=== PATIENT | male | born 1960 | race Caucasian/White ===

== ENCOUNTER 2020-07-14 14:25 | Outpatient (CLI) | payer MEDICARE, OTHER, SELFPAY ==
--- NOTE | 2020-07-14 14:41 | USCV_ITS ---
Yeimy Jacobo Age: 60 Gender: M : 1960 Exam Date: 07/14/2020 14:40 Ordering Phys: Manuel Ely MD Technologist: Kala Riley [place] [facility] [place]: [place] LEG SWELLING HISTORY: Lower extremity swelling. PROCEDURES: Venous duplex imaging was performed in only the right lower extremity. The following venous structures were evaluated: common femoral vein, profunda vein, proximal portion of the greater saphenous vein, superficial femoral vein, and the popliteal vein. In addition, the posterior tibial and peroneal trunk were evaluated. FINDINGS: Normal 2-D Doppler and augmentation and compressibility throughout the lower extremity venous structures. Additional imaging through the proximal calf veins also reveals no thrombus. Limited evaluation of the greater saphenous vein is patent with no thrombus. There appears to be a hematoma noted in the area of patient concern of right lower leg measuring 3.94x1.68x2.95cm. CONCLUSIONS No evidence of right lower extremity DVT. Hematoma right lower leg area of concern measuring 3.9 x1.6 x2.9cm Alec Fox MD (Electronically Signed) Final Date: 14 July 2020 16:58 S
== END 2020-07-14 14:26 | disposition home or self-care (01) ==
PROVIDERS: Visit Provider Family Medicine
DX: M79.604 Pain in right leg (principal); M79.89 Other specified soft tissue disorders; S80.11XA Contusion of right lower leg, initial encounter; X58.XXXA Exposure to other specified factors, initial encounter
CPT/HCPCS: 93971

== ENCOUNTER 2023-08-14 08:57 | Outpatient (CLI) | payer MEDICARE, OTHER, SELFPAY ==
--- NOTE | 2023-08-14 09:06 | US_ITS ---
WS: [id number] RIGHT UPPER QUADRANT ULTRASOUND HISTORY: ELEVATED LFT'S COMPARISON: None available. Liver: 16.8 cm in length. Normal size liver and echogenicity. No bile duct dilatation or mass. Portal Vein: Normal hepatopetal flow with monophasic waveform. Gallbladder: Normally distended. There is a small single gallstone. No acute cholecystitis. CBD: 0.3 cm Pancreas: Normal size and echogenicity. Right kidney: 10.1 cm in length. Normal size and echogenicity. No hydronephrosis or mass. Aorta and IVC: Unremarkable abdominal aorta and IVC. No ascites. IMPRESSION: 1. Cholelithiasis without acute cholecystitis. 2. No bile duct dilatation.
== END 2023-08-14 08:58 | disposition home or self-care (01) ==
LOC: RAD 08:59
PROVIDERS: PCP Nurse Practitioner Family; Visit Provider Family Medicine
DX: K80.20 Calculus of gallbladder without cholecystitis without obstruction (principal); R74.8 Abnormal levels of other serum enzymes
CPT/HCPCS: 76705

== ENCOUNTER 2025-09-04 15:05 | Emergency (ER) | payer MEDICARE, OTHER, SELFPAY ==
[2025-09-04 15:07] VITALS: BP 135/49; PULSE 107; RESP 18; TEMP 36.7; O2SAT 98
--- OUTSIDE RECORDS SUMMARY | 2025-09-04 15:10 | XMS_ITS | Clinical Summary ---
Author Organization [facility] Address [address] [place] [address] Care Team Providers Care Oil Field Technician Name Role Phone Unavailable Primary Care Provider Unavailabl e Allergies No known active allergies Medications METOPROLOL TARTRATE PO Take by mouth. Active pravastatin (PRAVACHOL) 20 mg Oral tablet Take 20 mg by mouth Daily LATE. Active oxiconazole nitrate (OXISTAT) 1 % Topical Lotn Apply to affected area 2 times daily. 60 Gram 10 03/09/2010 Active selenium sulfide (SELSUN) 2.5 % Topical Susp Apply to affected area daily. 6 oz 1 03/09/2010 Active terbinafine (LAMISIL) 250 mg Oral tabletIndicatio ns:Tinea corporis Take 1 Tab by mouth daily. 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
--- OUTSIDE RECORDS SUMMARY | 2025-09-04 15:10 | XMS_ITS | Clinical Summary ---
Author Organization [facility] Address [address] [facility] Attn: Epic Prelude ADT [place] [address] Care Team Providers Care Chief Meteorologist Name Role Phone Unavailable Primary Care Provider Unavailabl e Allergies No known active allergies Encounters Date Type Department Care Team Description 06/14/2025 Refill [facility] [place] [address] [address] [place] [address] Shyanne English MD from Last 3 Months Social History Tobacco Use Types Packs/Day Years Used Date Smoking Tobacco: Never Smokeless Tobacco: Never Alcohol Use Standard Drinks/Week Comments Yes 0 (1 standard drink = 0.6 oz pur e alcohol) Sex and Gender Information Value Date Recorded Sex Assigned at Not on file 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
--- OUTSIDE RECORDS SUMMARY | 2025-09-04 15:10 | XMS_ITS | Encounter Summary ---
Author Organization [facility] Address [address] [place] [address] Care Team Providers Care Import Customs Clearing Agent Name Role Phone Unavailable Primary Care Provider Unavailabl e Encounter Details Date Type Department Care Team (Late st Contact Info) Description 12/31/2006 Outpatient Historical [facility] D[facility]at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
--- OUTSIDE RECORDS SUMMARY | 2025-09-04 15:10 | XMS_ITS | Data Portability ---
Author Organization [facility] Lenea Christensen, [facility] Address [address] [address] Assessment No assessment recorded. Plan of Treatment Reminders Order Date Submit Date Provider Last Modified By Organization Details Last Modified Time Details Appointments RECHECK 2025 08:20A M Fuentes Bassett MD Not available Not available Not available Lab None recorded . Referral None recorded . Procedures None recorded . Surgeries None recorded . Imaging None recorded . Medication Orders None recorded . Patient TargetsNo targets recorded. Patient InstructionsNo instructions recorded. Reason for Referral None Reported. Problems Name Problem SNOMED Code Status Onset Date Resolution Date Notes Provider Name and Address Organization Details Recorded Time History of orthopedi c surgery 83420433456 101 Active 2005 bilateral knee surgery; 6 8:38AM by Khushboo Crowell LPN, Office Visit; Promoted; acuity set as *; Not Available [facility] 3 03:10:43 Heart valve disorder 623962 Active 2024 Fuentes Bassett MD [address] [place] [address], [phone] , [facility] 14:01:45 Bilateral osteoarth ritis of knees 32451011241 9107 Active 2024 Fuentes Bassett MD [address] [place] [address], [phone] , [facility] 14:02:42 Problem Notes None recorded. Procedures Surgical History Date Name Laterality Status Provider Name and Address Organization Details Recorded Time heart valve replacement completed PALOMOHÉCTOR HERNANDEZ [facility], Leena 04/27/2025 13:35:17 Pacemaker completed PALOMOAlexander CASTRO [facility], LHenryLMarkel 04/27/2025 13:35:26 [facility], Leena 04/27/2025 13:36:00 arthroscopy of ankle completed [facility], DeisyLHenryCHenry 04/27/2025 13:36:19 Colonoscopy completed [facility], ShinCHenry 04/27/2025 13:37:19 Imaging Results None recorded. Procedure Notes None recorded. Medical Equipment None Reported. Allergies Allergen ID Allergen Name Allergen Category Reaction Reaction Severity Criticality Documentation Date Start Date Code Code System Note Provider Name and Address Organization Details Recorded Time 57416 heparin medicatio n other severe Not available 04/27/20252012 5224 RxNorm [facility] L[facility] 5 13:43:08 61286 DermaSilk Rx SDS medicatio n rash moderate Not available 04/27/20252012 [facility], LHenryLHenryCHenry 5 13:43:08 86104 heparin, porcine medicatio n Not available Not available Not available 08/31/2025 38770 3 RxNorm Not Available ines - External Data Service - prod 19:02:03 69365 Adhesive agent (substanc e) environme nt,medica tion other Not available Not available 08/31/20252024 09347 0007 SNOMED Skin tears - silk tape Not Available ines - External Data Service - prod 19:02:18 Medications Name Sig Start Date Stop Date Status Note LastModified by Organization Details LastModified Time pravastati n 40 mg tablet Take 1 tablet every day by oral route. active Not Available Not Available No t Available warfarin 5 mg tablet 5 mg every day by oral route. 2012 active Not Available Not Available Not Avai lable metoprolol tartrate 50 mg tablet Take 1 tablet twice a day by oral route. active Not Available Not Available No t Available loratadine 10 mg tablet 10 mg every day by oral route. 2009 active Not Available Not Available Not Avai lable Fish Oil active Not Available Not Avai lable Not Available warfarin active managed by Dr. Augustine in [facility] Not Available Not Available Not Available Glucosamin e active Not Available Not Available Not Available Fish Oil 360 mg-1,200 mg capsule 1 capsule every day by oral route. 2012 active Not Available Not Available Not Avai lable Glucosamin e Chondroiti n 2019 active Not Available Not Available Not Avai lable Vitals Date Recorded Body height Body mass index (BMI) Body weight Respiratory rate Heart rate Oxygen saturation Body temperature Systolic And Diastolic Provider Name and Address Organization Details Last Updated DateTime 177.17 cm 30.3 kg/m2 27745.6 1 g 20 /min 71 /min 98 % 97.8 [degF] 128/68 mm[Hg] PALOMO HERNANDEZ [facility] L.LHenryCHenry 13:42:48 Social History Question Answer Notes LastModified by SourceMedical Details LastModified Time Tobacco Smoking Status Never Smoker PALOMO HERNANDEZ [facility], L.L.CHenry 04/27/2025 13:33:56 Do You Or Have You Ever Used Marijuana? Never Used Information not available 04/27/2025 What Was The Date Of Your Most Recent Tobacco Screening? 04/27/2025 Information not available 04/27/2025 What Is Your Relationship Status? Information not available 04/27/2025 Sex: Unknown Functional Status Question Answer Note LastModified by [employer] Details LastModified Time Do you use any illicit or recreational drugs? No Information not available 04/27/2025 Do you or have you ever used any other forms of tobacco or nicotine? No Information not available 04/27/2025 What is your level of alcohol consumption? Heavy Information not available 04/27/2025 Are you able to care for yourself independently? Yes Information not available 04/27/2025 Mental Status None recorded. Family History Relationship Description Onset Age of this Age Resolved Age Notes LastModified by Organization Details LastModified Time Mother Anemia 80 90 Not available 13:43:09 Mother Diabetes mellitus 65 Not available 2024 13:43:09 Medical History Condition Response Coronary Artery Disease N Gout N Other N Kidney Stones N Blood Diseases N Hyperthyroidism N Blood Transfusion N Breast Cancer N COPD N Hypothyroidism N Lung Disease N Depression N Defects or Inherited Disease N Developmental or Behavioral Disorders N Breast Problem N Difficulty Swallowing N Anesthesia Complications N Anxiety Disorder N Meniere's disease N Muscle, Joint, or Bone Problems Y Vision or Eye Problems N Arthritis N Infertility N Polyps N Cancer N Stroke N Varicosities N Endometriosis N Bladder or Kidney Problems N High Cholesterol N Liver Disease N Headaches N Fibromyalgia N Kidney Disease N Allergies/Hayfever Y Heart Problems Y Ear or Hearing Problems Y Hospitalizations Y Thyroid Problems N GI Problems N ADD/ADHD N Eating Disorder N Skin Problems Y Anemia N Constipation N Mental Illness N Diabetes N Ovarian Cancer N Bedwetting N Seizures/Epilepsy N Tuberculosis N Eczema N Abuse/Domestic Violence N Diverticulitis N Asthma N Reflux/GERD N Hepatitis N Heart Disease N Pulmonary Embolism N Chronic Ear Infections N Pre-Eclampsia N Hypertension Y Chicken Pox N Autism Spectrum Disorder (ASD) N Osteoporosis N Thrombophilias N Immunizations Vaccine Type Date Status Note Provider Nam e and Address Organization Details Recorded Time Influenza, split virus, trivalent, preservative 0 completed Not Available [facility] 04/27/2025 13:05:18 Past Encounters Encounter ID Performer Location Encounter Start Date Encounter Closed Date Diagnosis/Indication Diagnosis SNOMED-CT Code Diagnosis ICD10 Code Diagnosis IMO Codes Diagnosis Note [id number] Fuentes Bassett MD [facility] [address] [place] [address] 04/27/2025 13:04:34 04/28/2025 14:17:02 Heart valve disorder 996916 I38 377832 History of mechanical prosthetic mitral valve replacement 771882466 Z95.4 71977763 Bilateral osteoarthritis of knees 6797291429 83176 M17.0 45113449 Health Concerns Section Related Observation LastModified by Organization Detai ls LastModified Time None Recorded Concern Status LastModified by Organization Details LastModified Time None Recorded Advance Directives Directive None Recorded Payers Insurance Date Sequence Insurance Name Policy Number Policy Neely Covered Member ID Neely Member ID Guarantor Name 05/03/2025 2 [employer] (MEDICARE SUPPLEMENT) Yeimy Jacobo [id number] Yeimy Jacobo 05/03/2025 [place] - [facility] (MEDICARE) Yeimy Jacobo [id number] Yeimy Jacobo 04/27/2025 1 [place] Yeimy Jacobo [id number] Yeimy Jacobo
--- NOTE | 2025-09-04 15:31 | USR_ITS ---
PROCEDURE INFORMATION: Exam: US Duplex Left Lower Extremity Veins, Limited Exam date and time: 09/04/2025 4:23 PM Age: 65 years old Clinical indication: Swelling (edema) of limb; Lower extremity, left; Prior Surgery; Surgery Date: <1 month; Surgery Type: 12 days post op RT knee replacement; Additional Info: 12 days post op swelling, wants blood clot ruled out TECHNIQUE: Imaging protocol: Real-time duplex ultrasound of the left extremity with 2-D matias scale, color Doppler flow and spectral waveform analysis including responses to compression and other maneuvers (when performed) with image documentation. Limited exam focused on the left lower extremity veins. COMPARISON: No relevant prior studies available. FINDINGS: Left deep veins: Unremarkable. The common femoral, femoral, proximal profunda femoral and popliteal veins are patent without thrombus. Normal Doppler waveforms. Normal compressibility and/or augmentation response. Superficial veins: Greater saphenous vein at the saphenofemoral junction is patent without thrombus. Soft tissues: Mild subcutaneous edema [id number]. US/CV venous duplex [facility] [id number] IMPRESSION: No evidence of deep vein thrombosis.
[2025-09-04 15:40] LABS: Hematocrit 23.7 % (37-53); Hemoglobin 7.50 g/dL (11.27-16.99); Mean Corpuscular HGB Conc 31.6 g/dL (30-55); Mean Corpuscular Hemoglobin 33.5 pg (27-33); Mean Corpuscular Volume 105.8 fl (82-101); Nucleated Red Blood Cells % 1.0 %; Platelet Count 397 10^3/cmm (157-399); Red Blood Count 2.24 10^6/uL (3.85-5.65); White Blood Count 14.31 10^3/uL (3.29-11.43)
[2025-09-04 15:53] LABS: INR 2.50 (0.8-1.2); Prothrombin Time 28.40 SECONDS (12.1-14.9)
[2025-09-04 15:54] LABS: Partial Thromboplastin Time 55.6 SECONDS (23.9-36.7)
--- NOTE | 2025-09-04 16:26 | W.ED.EXTPRO ---
HPI - Extremity Problem General: Chief complaint: Extremity Problem,Nontraumatic Stated complaint: postop swelling (lt knees 08/23) Time Seen by Provider: 09/04/25 15:15 Source: patient Mode of arrival: ambulatory Limitations: no limitations History of Present Illness: Patient is a 65-year-old male who presents the emergency department complaining of left lower leg swelling status post left knee replacement on 08/23. He states he was at physical therapy today, they had told him they were concerned of a blood clot/DVT so told him to come to the ED. He is on Coumadin, states that he has had swelling postop but overall it has been going down. He has no pain in his calf and overall states he is not in much pain at all. He has no distal color changes, temperature changes, or sensory changes. INR was recently checked was 2.5. Denies any trauma. MD Complaint: extremity swelling Onset (ago): day(s) Pain Consistency: constant Location: left Associated symptoms: Deny chest pain, fever(s) or rash Context: recent surgery/procedure Related Data Home Medications ?Medication ?Instructions ?Recorded ?Confirmed metoprolol tartrate 50 mg tablet 50 mg PO DAILY 08/30/20 01/27/25 pravastatin 80 mg tablet 80 mg PO DAILY 08/30/20 01/27/25 warfarin 5 mg tablet 5 mg PO DAILY 08/30/20 01/27/25 ascorbate calcium (vitamin C) 500 500 mg PO DAILY 12/24/23 01/27/25 mg tablet chondroctin PO DAILY 12/24/23 01/27/25 glucosamine sulfate 1,500 mg oral mg PO 12/24/23 01/27/25 powder packet lutein 20 mg capsule 20 mg PO DAILY 12/24/23 01/27/25 multivitamin (Daily Multi-Vitamin 1 tab PO DAILY 12/24/23 01/27/25 tablet) omega-3 fatty acids 500 mg capsule 500 mg PO DAILY 12/24/23 01/27/25 salmon oil 1,000 mg-omega-3 fatty cap PO 12/24/23 01/27/25 acids 210 mg capsule Allergies Allergy/AdvReac Type Severity Reaction Status Date / Time adhesive tape Allergy unknown Verified 09/04/25 15:12 heparin Allergy Unknown Verified 09/04/25 15:12 Review of Systems General: Reports: 10 or more systems reviewed and unremarkable except in HPI and below Const: Denies: fever(s) or chills Card: Denies: chest pain Resp: Denies: dyspnea or productive cough GI: Denies: abdominal pain, nausea, vomiting or diarrhea : Denies: flank pain Musc: Reports: extremity swelling; Denies: neck pain, back pain, extremity pain, joint pain, joint swelling, joint redness, joint warmth, limited range of motion or muscle weakness Skin/Breast: Denies: rash Neuro: Denies: headache(s), numbness in extremities or weakness in extremities PFSH ED PFSH: Medical History Hyperlipidemia HTN (hypertension) Surgical History Hx of heart valve replacement with mechanical valve Social History Smoking and tobacco/nicotine status: never used tobacco/nicotine Alcohol intake: never Substance/Drug Use: never Adopted: No Caregiver/support person: No Lives independently: No Household members: spouse Marital status: service: No Current occupational status: retired Sexually active: Yes Do you think of yourself as: Straight/Heterosexual Current gender identity: Male Physical Exam Const: COMMON NORMALS: no acute distress and no limitations GENERAL APPEARANCE: cooperative, comfortable and well developed ORIENTATION/CONSCIOUSNESS: Yes awake HENMT: COMMON NORMALS: normocephalic, atraumatic and hearing grossly normal bilaterally HEAD & SCALP: normocephalic and atraumatic Eye: COMMON NORMALS: Equal, round and reactive pupils present, EOMs intact bilaterally and conjunctivae normal CONJUNCTIVA: Yes conjunctivae normal PUPIL: Yes Equal, round and reactive pupils present Neck/C-Spine: COMMON NORMALS: full ROM, supple and no JVD Resp: COMMON NORMALS: normal respiratory effort, No retractions, No use of accessory muscles and clear to auscultation bilaterally AUSCULTATION: clear to auscultation bilaterally Cardio: COMMON NORMALS: no JVD, regular rate, regular rhythm, No clicks present (Cardio), No murmurs present (Cardio) and No rub (Cardio) RATE: regular rate RHYTHM: regular rhythm Extremity: COMMON NORMALS: full ROM and capillary refill normal NARRATIVE EXTREMITY EXAM: Postoperative edema left lower extremity with old bruising. Distal DP/PT pulses are intact. There is no coolness or mottling of the skin. Negative calf tenderness, negative Homans' sign. Distal sensations are intact and symmetrical to right lower extremity. No cellulitic changes or signs of infection. Skin: COMMON NORMALS: no rashes or lesions noted GENERAL SKIN EXAM: no rashes or lesions noted Course Vital Signs: Vital signs: Vital Signs Temperature 98.1 F 09/04/25 15:07 Pulse Rate 107 H 09/04/25 15:07 Respiratory Rate 18 09/04/25 15:07 Blood Pressure 135/49 09/04/25 15:07 Pulse Oximetry 98 09/04/25 15:07 MDM - Extremity (Nontraumatic) Medical Decision Making Patient present for evaluation of edema in his left lower extremity. He is 12 days postop left total knee replacement has been doing physical therapy overall has felt well but his physical therapist was concerned with the amount of swelling he had today. Wanted to make sure there was no DVT, ultrasound ruled this out. This is postoperative edema that is physiologic, there is no acute process in the wound itself. Well without any infectious etiology or complications. Patient stable for discharge home. Lab Data 09/04/25 15:36 Radiology Impressions Venous Duplex 09/04/25 15:31 IMPRESSION: No evidence of deep vein thrombosis. Laboratory Results WBC 14.31 10^3/uL (3.29-11.43) H 09/04/25 15:36 RBC 2.24 10^6/uL (3.85-5.65) L 09/04/25 15:36 Hgb 7.50 g/dL (11.27-16.99) L 09/04/25 15:36 Hct 23.7 % (37-53) L 09/04/25 15:36 MCV 105.8 fl (82-101) H 09/04/25 15:36 MCH 33.5 pg (27-33) H 09/04/25 15:36 MCHC 31.6 g/dL (30-55) 09/04/25 15:36 RDW 15.4 % (12.1-15.1) H 09/04/25 15:36 Plt Count 397 10^3/cmm (157-399) 09/04/25 15:36 MPV 10.1 fL (7.4-10.4) 09/04/25 15:36 Neut % (Auto) 84.3 % 09/04/25 15:36 Lymph % (Auto) 4.9 % 09/04/25 15:36 [place] % (Auto) 9.2 % 09/04/25 15:36 Eos % (Auto) 0.6 % 09/04/25 15:36 Baso % (Auto) 0.3 % 09/04/25 15:36 Neut # (Auto) 12.07 10^3/uL (1.8-7.7) H 09/04/25 15:36 Lymph # (Auto) 0.7 10^3/uL (0.8-4.8) L 09/04/25 15:36 [place] # (Auto) 1.3 10^3/uL (0.2-0.9) H 09/04/25 15:36 Eos # (Auto) 0.1 10^3/uL (0.0-0.8) 09/04/25 15:36 Baso # (Auto) 0.0 10^3/uL (0.0-0.1) 09/04/25 15:36 Nucleated RBC % (auto) 1.0 % 09/04/25 15:36 Nucleated RBCs # 0.1 /100WBC 09/04/25 15:36 PT 28.40 SECONDS (12.1-14.9) H 09/04/25 15:36 INR 2.50 (0.8-1.2) H 09/04/25 15:36 APTT 55.6 SECONDS (23.9-36.7) H 09/04/25 15:36 All radiology interpretation(s) finalized by discharge Discharge Plan Discharge Patient Disposition: Home Clinical Impression: Postoperative edema Condition: Stable Prescriptions: No Action warfarin 5 mg tablet 5 mg PO DAILY pravastatin 80 mg tablet 80 mg PO DAILY metoprolol tartrate 50 mg tablet 50 mg PO DAILY multivitamin [Daily Multi-Vitamin] Tablet 1 tab PO DAILY ascorbate calcium (vitamin C) 500 mg tablet 500 mg PO DAILY omega-3 fatty acids 500 mg capsule 500 mg PO DAILY salmon oil-omega-3 fatty acids 1,000-210 mg capsule PO lutein 20 mg capsule 20 mg PO DAILY Rx Instructions: give with meal/snack glucosamine sulfate 1,500 mg powder in packet PO chondroctin PO DAILY Discharge Orders: Discharge ED (Routine); Ordered 09/04/25 Ordered By: Mike Perkins Referrals: Fuentes Bassett MD [Primary Care Provider, [facility]] Patient Instructions: Patient Portal & Jose Carlos Instructions Activity Restrictions/Additional Instructions: Discharge Instructions Diagnosis: Normal postoperative swelling of the left lower extremity following left total knee replacement (August 23, 2025). Deep vein thrombosis has been ruled out by ultrasound. What to Expect: Swelling after knee replacement surgery is normal and expected. Swelling typically peaks between 3-5 days after surgery and can affect both legs, though it is more pronounced in the operated leg. The swelling above the knee is usually greater than below the knee. Leg Positioning: - When resting, position your left knee in 30-60 degrees of flexion (slightly bent) rather than fully straight. This helps reduce swelling and blood loss in the first week after surgery. - Elevate your leg when sitting or lying down. - Continue this positioning for at least the first 7 days after surgery. Compression Therapy: - Consider using an adjustable compression garment on your operated leg for the first 3 weeks after surgery. Studies show this can significantly reduce swelling when combined with other measures. - If using a compression device, wear it consistently throughout the day for maximum benefit. Activity and Exercise: - Continue your home exercise program as instructed by physical therapy. Regular exercise helps reduce swelling. - Walk regularly throughout the day. Early mobilization is important for recovery and helps prevent complications. - Gradually increase your activity level as tolerated. When to Seek Medical Attention: Contact your surgeon immediately if you experience: - Sudden increase in swelling, especially if accompanied by pain, warmth, or redness - Chest pain or shortness of breath - Fever above 101?F (38.3?C) - Increased drainage or opening of your surgical incision - Calf pain or tenderness that is new or worsening Medications: - Continue all medications as prescribed by your surgeon, including any blood thinners for DVT prevention. - Take pain medications as directed. Follow-up: - Attend all scheduled follow-up appointments with your surgeon. - Continue physical therapy as recommended. Additional Information: Most swelling will gradually improve over the first several weeks after surgery. The compression and positioning strategies are most effective when used consistently during the first 3 weeks. Your adherence to these recommendations will help optimize your recovery. Print Language: Ukrainian Coding Level of Care Code ED Loan Interviewer for Jennifer Calloway
[2025-09-04 17:13] VITALS: BP 129/75; PULSE 70; RESP 16; O2SAT 99
== END 2025-09-04 17:13 | disposition home or self-care (01) ==
PROVIDERS: Emergency Provider Physician Assistant; PCP Family Medicine
DX: R60.0 Localized edema (principal); Z96.652 Presence of left artificial knee joint; Z98.890 Other specified postprocedural states
CPT/HCPCS: 36415; 85025; 85610; 85730; 93971; 99284